=== PATIENT | female | born 1965 | race Caucasian/White ===

== ENCOUNTER 2019-10-01 07:24 | Day surgery (SDC) | payer BC, SELFPAY ==
[~2019-10-01] VITALS: Ht 162.6 cm; Wt 74.8 kg
[2019-10-01] MEDS ORDERED: CIPROFLOXACIN LACT 400 MG/D5W 200 ML IV ONE (07:45)
[2019-10-01] MEDS ORDERED: fentaNYL CITRATE/PF 100 MCG/2 ML AMP IVP PRN ×2 (08:45)
[2019-10-01] MEDS ORDERED: ONDANSETRON HCL 4 MG/2 ML VIAL IVP PRN ×2 (08:45→11:45)
[2019-10-01] MEDS ORDERED: POLYMYXIN 500,000/BACIT.10,000 UNITS in NS IRR 1 L IR ONE (08:56)
[2019-10-01] MEDS ORDERED: MIDAZOLAM HCL 5 MG/ML VIAL (VERSED) IV ONE (11:10)
[2019-10-01] MEDS ORDERED: PROPOFOL 200MG/ 20ML VIAL (DIPRIVAN) IV ONE (11:10)
[2019-10-01] MEDS ORDERED: FUROSEMIDE 20 MG/2 ML VIAL ONE (11:10)
[2019-10-01] MEDS ORDERED: BUPIVACAINE /PF 0.5% 30 ML VIAL ONE (11:10)
[2019-10-01] MEDS ORDERED: SEVOFLURANE 15 MIN GAS INH ONE (11:10)
[2019-10-01] MEDS ORDERED: LIDOCAINE 1% 10 MG/ML, 20 ML MDV ONE (11:10)
[2019-10-01] MEDS ORDERED: ROCURONIUM BROMIDE 10 MG/ML (ZEMURON) ONE (11:10)
[2019-10-01] MEDS ORDERED: ROPIVACAINE HCL/PF 5 MG/ML 0.5% 30 ML VIAL ONE (11:10)
[2019-10-01] MEDS ORDERED: ROPIVACAINE HCL/PF 0.2% EPIDURAL 200 ML PLAST..BAG ONE (11:10)
[2019-10-01] MEDS ORDERED: DEXTROSE 50% JECT 50 ML DISP.SYRIN ONE (11:10)
[2019-10-01] MEDS ORDERED: LR 1,000 ML IV.SOLN IV ONE (11:10)
[2019-10-01] MEDS ORDERED: fentaNYL CITRATE/PF 100 MCG/2 ML AMP ONE ×2 (11:10→12:17)
[2019-10-01] MEDS ORDERED: NS IRRIG SOLN 1000 ML IR ONE (11:10)
[2019-10-01] MEDS ORDERED: OXYCODONE/ACETAMINOPHEN 5-325 TABLET PO PRN ×2 (11:45)
[2019-10-01] MEDS ORDERED: HYDROcodone/ACETAMIN 5-325 MG TAB (NORCO/ VICODIN) PO PRN (11:45)
[2019-10-01 13:03] VITALS: BP_SYST 120
[2019-10-01] MEDS ORDERED: OXYCODONE/ACETAMINOPHEN 5-325 TABLET ONE (13:38)
[2019-10-01] MEDS ORDERED: KETOROLAC TROMETHAMINE 30 MG VIAL IVP ONE (15:00)
== END 2019-10-01 16:10 | disposition home or self-care (01) ==
LOC: SDS 07:24 → SMU 07:24 → SDS 16:10
PROVIDERS: ATTEND Specialist
DX: N87.9 Dysplasia of cervix uteri, unspecified (principal); D25.9 Leiomyoma of uterus, unspecified; N39.3 Stress incontinence (female) (male); N73.6 Female pelvic peritoneal adhesions (postinfective); J02.9 Acute pharyngitis, unspecified; Z11.59 Encounter for screening for other viral diseases
CPT/HCPCS: 58552; 64488; 88307; C1727; J0744; J1940; J2001; J2250; J2704; J3010; J3490; J7120; U0003; E0190